=== PATIENT | male | born 1990 | race Caucasian/White ===

== ENCOUNTER 2018-10-02 15:20 | Emergency (ER) | payer BC ==
[2018-10-02] MEDS ORDERED: Sodium Chloride 0.9% 10 ML Syringe FLUSH PRN (16:23)
[2018-10-02] MEDS ORDERED: HYDROmorphone 1 MG/ML Syringe IVPUSH ONE (16:23)
[2018-10-02] MEDS ORDERED: Ondansetron 4 MG/2 ML SDV IVPUSH ONE (16:23)
--- NOTE | 2018-10-02 16:37 | EDM.PDOC ---
ED HPI GENERAL MEDICAL PROBLEM - General Chief Complaint: Lower Extremity Injury/Pain Stated Complaint: KNEE INJURY Time Seen by Provider: 10/02/18 16:15 Source of Information: Reports: Patient, RN Notes Reviewed - History of Present Illness INITIAL COMMENTS - FREE TEXT/NARRATIVE: 27-year-old male states that he accidentally stepped on his coverall causing him to "trip and fall injuring his left knee. He is not sure if the twisted or what exactly happened but he felt a popping sensation in the left knee and has severe pain. He cannot bend or move the leg and cannot ambulate. He denies other pain or injury from this incident. Left Knee Pain Score (Numeric/FACES): 10 - Related Data Allergies Allergy/AdvReac Type Severity Reaction Status Date / Time No Known Allergies Allergy Verified 10/02/18 15:39 Home Meds: Home Meds . [No Known Home Meds] 10/02/18 [History] Past Medical History - Past Health History Medical/Surgical History: Denies Medical/Surgical History Social & Family History - Tobacco Use Smoking Status *Q: Never Smoker - Recreational Drug Use Recreational Drug Use: No Review of Systems - Review of Systems Review Of Systems: See Below Constitutional: Reports: No Symptoms Eyes: Reports: No Symptoms Ears: Reports: No Symptoms Nose: Reports: No Symptoms Mouth/Throat: Reports: No Symptoms Respiratory: Denies: Shortness of Breath Cardiovascular: Denies: Chest Pain Musculoskeletal: Reports: Joint Pain, Joint Swelling (Severe pain left knee left knee) Skin: Reports: No Symptoms Neurological: Denies: Numbness, Tingling ED EXAM, GENERAL - Physical Exam Exam: See Below General Appearance: Alert, Severe Distress Throat/Mouth: Normal Inspection Neck: Supple Respiratory/Chest: No Respiratory Distress, Lungs Clear, Normal Breath Sounds Cardiovascular: Regular Rate, Rhythm Extremities: Other (Moderate diffuse swelling and tenderness left knee, pain with any type of motion, left hip and pelvis is nontender, left femur nontender above the knee. Left lower leg ankle and foot also all nontender) Skin Exam: Warm, Dry, Normal Color Course - Vital Signs Last Recorded V/S: Last Vital Signs Temp 97.0 F 10/02/18 15:42 Pulse 82 10/02/18 15:42 Resp 18 10/02/18 15:42 BP 129/95 H 10/02/18 15:42 Pulse Ox 97 10/02/18 15:42 - Orders/Labs/Meds Meds: Medications Discontinued Medications Generic Name Dose Route Start Last Admin Trade Name Freq PRN Reason Stop Dose Admin Hydromorphone HCl 1 mg 10/02/18 16:23 10/02/18 16:44 Dilaudid IVPUSH 10/02/18 16:24 1 mg ONETIME ONE Administration Hydromorphone HCl 0.5 mg 10/02/18 17:51 10/02/18 17:58 Dilaudid IVPUSH 10/02/18 17:52 0.5 mg ONETIME STA Administration Hydromorphone HCl 0.5 mg 10/02/18 19:16 10/02/18 19:22 Dilaudid IVPUSH 10/02/18 19:17 0.5 mg ONETIME STA Administration Hydromorphone HCl 0.5 mg 10/02/18 20:05 10/02/18 20:12 Dilaudid IVPUSH 10/02/18 20:06 0.5 mg ONETIME STA Administration Ondansetron HCl 4 mg 10/02/18 16:23 10/02/18 16:40 Zofran IVPUSH 10/02/18 16:24 4 mg ONETIME ONE Administration Sodium Chloride 10 ml 10/02/18 16:23 10/02/18 16:44 Saline Flush FLUSH 10 ml ASDIRECTED PRN Administration Keep Vein Open - Re-Assessments/Exams Free Text/Narrative Re-Assessment/Exam: 10/02/18 17:40. Xrays show a lucent bone lesion within the lateral femoral condyle and epicondyle region. Pathologic fracture is seen through the lucent lesion. Fairly large joint effusion also visible. See radiology report for details. I have discussed this with Dr Pizano, Orthopedist contact manager. He has reviewed the Xrays. He has advised to get a CT scan now for more information. He and his clinic will work on getting him referred to [facility] early next week or as soon as possible. Will treat with Gonzalo wrap, knee immobilizer, crutches, percocet prn pain. Departure - Departure Time of Disposition: 18:00 Disposition: Home, Self-Care 01 Condition: Serious Clinical Impression: Fracture of distal end of left femur Qualifiers: Encounter type: initial encounter Fracture type: closed Fracture morphology: unspecified fracture morphology Qualified Code(s): S72.402A - Unspecified fracture of lower end of left femur, initial encounter for closed fracture - Discharge Information Instructions: Femoral Shaft Fracture Referrals: PCP,None [Primary Care Provider] - Forms: ED Department Discharge Additional Instructions: Gonzalo wrap, knee immobilizer left knee, packs and elevation as needed for swelling , crutches, no weightbearing left leg. You may take Tylenol up to q 6 hour as needed for mild to moderate discomfort or Percocet if needed for more severe pain. Do not take Tylenol and Percocet at the same time. Dr Pizano, Orthopedist will work to get you a referral to [facility]. He and his staff will start working on that Thursday as their schedule permits. Call [phone] for information if you have not heard from his office by around 3:00 Thursday afternoon. Return to ED as needed.
--- NOTE | 2018-10-02 17:11 | CR ---
Left knee: 4 views left knee were obtained. Lucent bony lesion is seen within the lateral femoral condyle and epicondyle region. Pathologic fracture is seen through this lucent lesion. Joint spaces are preserved. No additional fracture or other bony abnormality is seen. Large joint is seen possibly due to hemarthrosis. Impression: 1. Lucent bone lesion within the lateral femoral condyle and epicondylar regions. This appears mildly aggressive. 2. Pathologic fracture within this lucent lesion. 3. Large joint effusion possibly due to hemarthrosis. Note: Orthopedic referral is recommended. Diagnostic code #9
[2018-10-02] MEDS ORDERED: HYDROmorphone 0.5 MG/0.5 ML Syringe IVPUSH STA ×3 (17:51→20:05)
--- NOTE | 2018-10-04 08:55 | CT ---
CT left knee Technique: Multiple axial sections through the left knee were obtained. Reconstructed coronal and sagittal images were obtained. Findings: Large lucent lesion is seen within the lateral femoral condyle and epicondyle. There is cortical thinning being seen. This lesion has a maximum dimension approximately 5.3 cm. Comminuted fracture is identified through this lesion. Greatest displacement is approximately 1.1 cm. Articular margin shows greatest displacement by about 8.2 mm. The posterior aspect of the lateral femoral condyle is superior displaced by 8 mm. The medial femoral condyle is unremarkable. Tibia appears intact. Proximal fibula is intact. Large joint effusion. Impression: 1. Large lucent lesion within the lateral femoral condyle and epicondyle showing cortical thinning. Measurements as noted above. 2. Comminuted and displaced fracture through this lesion. Greatest articular displacement is by about 8.2 mm. Note: Lesion is somewhat aggressive due to the cortical thinning. Differential is somewhat extensive but high within the differential is giant cell tumor. Diagnostic code #9 MTDD
== END 2018-10-02 20:30 | disposition home or self-care (01) ==
LOC: JD.ED 15:20
DX: M84.462A Pathological fracture, left tibia, initial encounter for fracture (principal); W01.0XXA Fall on same level from slipping, tripping and stumbling without subsequent striking against object, initial encounter
CPT/HCPCS: 73564; 73700; 96374; 96375; 96376; 99284; J1170; J2405